=== PATIENT | male | born 1960 | race African-American/Black ===

== ENCOUNTER 2017-03-31 18:56 | Inpatient (IN) | payer OTHER ==
[~2017-03-31] VITALS: Ht 170.2 cm; Wt 80.7 kg
[~2017-03-31 18:56] MED LIST: ALBUTEROL0.63 MG/3 INH; AZITHROMYCIN500 MG PO; COZAAR25 MG PO; LABETALOL HCL100 MG PO; LORATADINE10 MG PO; PREDNISONE20 MG PO; TESSALON PERLE100 MG PO
[2017-03-31] MEDS ORDERED: ACETAMINOPHEN 325 MG TAB ONE (19:19)
[2017-03-31 19:29] LABS: STREPTOCOCCUS GRP A ANTIGEN NEGATIVE (NEGATIVE)
[2017-03-31] MEDS ORDERED: ACETAMINOPHEN 325 MG TAB PO ONE (19:30)
--- NOTE | 2017-03-31 19:38 | Diagnostic Imaging Report ---
EXAMINATION: CHEST 2 VIEWS 03/31/2017 7:07 PM COMPARISON: Chest CT from 09/02/2016 INDICATION: Shortness of breath, cough, congestion DISCUSSION: LINES: None. LUNGS: Diffuse interstitial opacities within upper lobe predominance, compatible with the diagnosis of sarcoidosis.. No focal consolidation. PLEURA: No pleural effusion or pneumothorax. Blunting of the right costophrenic angle is likely related to scarring. HEART AND MEDIASTINUM: Normal heart size. Enlarged pulmonary dee may be related to pulmonary arterial hypertension. BONES AND SOFT TISSUES: No acute osseous lesion. The soft tissues are normal. IMPRESSION: Interstitial lung disease, consistent with the reported history of sarcoidosis. No focal consolidation. Naga Tracy MD Signed by: Dr. Naga Tracy M.D. on 03/31/2017 7:34 PM
[2017-03-31 19:39] LABS: INFLUENZAE A&B ANTIGEN (RAPID) NEGATIVE (NEGATIVE)
[2017-03-31] MEDS ORDERED: CEFTRIAXONE SOD 1 GM VIAL IV STA (19:48)
[2017-03-31] MEDS ORDERED: SODIUM CHLORIDE 0.9% 1000ML 1,000 ML IV STA (19:52)
[2017-03-31] MEDS ORDERED: ALBUTEROL/IPRATROPIUM 3 ML NEB NEB ONE (20:00)
[2017-03-31] MEDS ORDERED: METHYLPREDNISOLONE SOD SUCC 125 MG/2ML VIAL IV ONE (20:00)
[2017-03-31] MEDS ORDERED: KETOROLAC TROMETHAMINE 30 MG/ML VIAL IV ONE (20:00)
[2017-03-31 21:29] LABS: EOSINOPHILS % 0.1 % (0.0-6.0); HEMATOCRIT 40.4 % (38.2-49.6); HEMOGLOBIN 13.7 g/dL (14.0-18.0); LYMPHOCYTES # (AUTO) 0.6 (1.0-3.2); LYMPHOCYTES % 8.2 % (18.0-39.1); MEAN CORPUSCULAR HEMOGLOBIN 29.1 pg (28-32); MEAN CORPUSCULAR HGB CONC 33.9 g/dL (31-35); MONOCYTES # (AUTO) 0.2 (0.2-0.8); MONOCYTES % 2.3 % (4.4-11.3); NEUTROPHILS # (AUTO) 6.8 (2.1-6.9); NEUTROPHILS % 89.1 % (38.7-80.0); PLATELET COUNT 161 x10e3/uL (140-360); RED CELL DISTRIBUTION WIDTH 12.1 % (11.7-14.4)
[2017-03-31 21:48] LABS: ALANINE AMINOTRANSFERASE 49 IU/L (0-55); ALBUMIN 4.3 g/dL (3.5-5.0); ALBUMIN/GLOBULIN RATIO 1.3 (0.8-2.0); ALKALINE PHOSPHATASE 71 IU/L (40-150); ANION GAP 11.6 mmol/L (8-16); BLOOD UREA NITROGEN 9 mg/dL (7-26); BUN/CREATININE RATIO 8 (6-25); CALCIUM 9.7 mg/dL (8.4-10.2); CARBON DIOXIDE 26 mmol/L (22-29); CHLORIDE 104 mmol/L (98-107); CREATININE, SERUM 1.14 mg/dL (0.72-1.25); EST GLOMERULAR FILTRATION RATE > 60 ML/MIN (60-); GLUCOSE 123 mg/dL (74-118); POTASSIUM 4.6 mmol/L (3.5-5.1); SODIUM 137 mmol/L (136-145)
[2017-03-31] MEDS: ALBUTEROL/IPRATROPIUM 3 ML NEB NEB SCH (23:45)
[2017-04-01] VITALS (7 sets, daily range): BP systolic 138–169; BP diastolic 81–109
[2017-04-01] MEDS ORDERED: ALBUTEROL/IPRATROPIUM 3 ML NEB NEB PRN (01:15)
[2017-04-01] MEDS: SODIUM CHLORIDE 0.9% 1000ML 1,000 ML IV SCH ×3 (02:17→19:17)
[2017-04-01] MEDS: LEVOFLOXACIN 750MG/DEXTROSE PREMIX BAG 150ML IV SCH (02:17)
[2017-04-01] MEDS: ACETAMINOPHEN/CODEINE 300MG - 30MG TAB PO PRN ×2 (04:49→13:38)
[2017-04-01] MEDS: GUAIFENESIN 600MG/DEXTROMETHORPHAN 30MG TABSR PO SCH ×3 (06:01→17:10)
[2017-04-01] MEDS: METHYLPREDNISOLONE SOD SUCC 40 MG/ML VIAL IV SCH ×3 (06:01→21:33)
[2017-04-01] MEDS: ALBUTEROL/IPRATROPIUM 3 ML NEB NEB SCH ×4 (07:50→19:10)
[2017-04-01] MEDS: LORATADINE 10 MG TAB PO SCH (08:41)
[2017-04-01] MEDS: PREDNISONE 20 MG TAB PO SCH (08:42)
[2017-04-01] MEDS: LOSARTAN POTASSIUM 25 MG TAB PO SCH (08:42)
[2017-04-01] MEDS ORDERED: BENZONATATE 100 MG CAP PO PRN (12:00)
[2017-04-01] MEDS ORDERED: ACETAMINOPHEN 325 MG TAB PO PRN (12:00)
[2017-04-01] MEDS: LABETALOL HCL 100 MG TAB PO SCH ×2 (13:28→20:45)
--- NOTE | 2017-04-01 15:34 | History and Physical ---
PATIENT'S PRIMARY CARE PROVIDER: A doctor at the [facility]. CHIEF COMPLAINT: Shortness of breath. HISTORY OF PRESENT ILLNESS: Mr. Iverson is a 56-year-old gentleman who presents with acute shortness of breath, wheezing, nonproductive cough and labored respirations. His was admitted to the hospital a couple of days ago for flu and upper respiratory infection. The patient does have a history of sarcoidosis that was diagnosed by bronchoscopy in 1986. REVIEW OF SYSTEMS: He denies fever, chills, or weight loss. He denies sinus congestion or sore throat. He denies chest pain or palpitations. He does have some pleuritic pain with coughing in the right lower chest wall. He does complain of shortness of breath, wheezing and hacking cough. He denies abdominal pain, nausea, vomiting, or melena. He denies dysuria or flank pain. He denies rash or pruritus. He denies joint pain or swelling. He denies bleeding or bruising. He denies headache, vertigo or loss of consciousness. He denies depression, agitation, homicidal or suicidal ideation. PAST MEDICAL HISTORY: Significant for longstanding hypertension and sarcoidosis that was diagnosed by bronchoscopy in 1986 and COPD. He has a history of cholecystectomy a few years ago. CURRENT MEDICATIONS: Include: 1. Tessalon Perles as needed. 2. Labetalol 100 mg q.12 h. 3. Albuterol nebs as needed. 4. Loratadine 10 mg daily. 5. Losartan 25 mg daily. 6. Prednisone 20 mg daily. 7. Zithromax 500 mg daily as an outpatient. ALLERGIES: HE HAS NO KNOWN DRUG ALLERGIES. FAMILY HISTORY: Remarkable only for hypertension. SOCIAL HISTORY: The patient is . Bengali is his primary language. He has never smoked. He does not drink or use illegal drugs. He is generally independently functioning. PHYSICAL EXAMINATION PSYCHIATRIC: He is alert and oriented times 3 with normal mood and affect. CONSTITUTIONAL: He has normal body habitus. He is in no acute distress. VITAL SIGNS: Blood pressure 169/101, pulse 110 and regular, respiratory rate 23, O2 sat 99% on 2 L nasal cannula. Temperature 97.0. HEENT: Head is atraumatic. Eyes are anicteric, with clear conjunctivae. Ears and nares are without erythema or discharge. Oropharynx is clear. NECK: Supple with no mass or thyromegaly. LYMPHATIC SYSTEM: He has no palpable cervical, axillary or inguinal adenopathy. CARDIOVASCULAR: His heart has regular rate and rhythm, tachycardic, with no murmur. He has no carotid bruit. He has no peripheral edema. He has palpable dorsal and pedal pulses. RESPIRATORY: Lungs are clear to auscultation and percussion with markedly diminished breath sounds throughout, some prolonged expiration, and a dry, hacking cough with some end-expiratory wheezing. He has normal respiratory effort on 2 L nasal cannula. GASTROINTESTINAL: Abdomen is soft, without organomegaly, masses or tenderness. He has normal bowel sounds present. CUTANEOUS: His skin is warm and dry to touch with no rash or skin breakdown. MUSCULOSKELETAL: His joints are in normal alignment without erythema or swelling. He has no calf tenderness. NEUROLOGIC: Exam is nonfocal with intact cranial nerves and no motor or sensory deficits. DIAGNOSTIC STUDIES: Chest x-ray shows chronic interstitial lung disease consistent with sarcoidosis. His flu screen was negative. Strep screen was negative. His CBC shows a white count of 7.66 with 89% neutrophils, hemoglobin 13.7, hematocrit 40.4, platelet count 161,000. Chemistry shows normal electrolytes, CO2 26, creatinine 1.14 and BUN 9 for a normal GFR, calcium 9.7, glucose 123. Transaminases, bilirubin and alk phos are normal. IMPRESSION 1. Bronchopneumonia. 2. Acute chronic obstructive pulmonary disease exacerbation. 3. Sarcoidosis flare-up. 4. Hypertension. PLAN 1. The patient is admitted to the floor and started on aggressive neb treatments along with IV Solu-Medrol and IV Levaquin for the bronchopneumonia and COPD exacerbation. The patient is on supplemental oxygen. 2. The patient is, again, receiving IV steroids for his sarcoid flare-up. 3. The patient will continue with losartan and labetalol for blood pressure control. 4. For prophylaxis, the patient will be on Lovenox for DVT prophylaxis and Pepcid for GI prophylaxis. Job#: [id number]
[2017-04-01] MEDS: ENOXAPARIN SOD INJ 40 MG/0.4 ML SYR SC SCH (16:28)
[2017-04-01] MEDS: FAMOTIDINE 20 MG TAB PO SCH (16:28)
[2017-04-02] VITALS: BP 152/95
[2017-04-02] MEDS: GUAIFENESIN 600MG/DEXTROMETHORPHAN 30MG TABSR PO SCH ×4 (00:15→18:44)
[2017-04-02] MEDS: LEVOFLOXACIN 750MG/DEXTROSE PREMIX BAG 150ML IV SCH (01:12)
[2017-04-02] MEDS: ACETAMINOPHEN/CODEINE 300MG - 30MG TAB PO PRN ×2 (01:12→13:46)
[2017-04-02] MEDS: ALBUTEROL/IPRATROPIUM 3 ML NEB NEB SCH ×5 (02:55→20:45)
[2017-04-02] MEDS: METHYLPREDNISOLONE SOD SUCC 40 MG/ML VIAL IV SCH ×3 (05:28→21:04)
[2017-04-02 05:43] VITALS: BP 162/95
[2017-04-02 07:12] LABS: HEMOGLOBIN 11.3 g/dL (14.0-18.0); LYMPHOCYTES # (AUTO) 0.8 (1.0-3.2); LYMPHOCYTES % 8.4 % (18.0-39.1); MEAN CORPUSCULAR HEMOGLOBIN 29.4 pg (28-32); MEAN CORPUSCULAR HGB CONC 33.2 g/dL (31-35); MEAN CORPUSCULAR VOLUME 88.3 fL (81-99); MONOCYTES # (AUTO) 0.7 (0.2-0.8); MONOCYTES % 7.4 % (4.4-11.3); NEUTROPHILS # (AUTO) 8.1 (2.1-6.9); NEUTROPHILS % 83.9 % (38.7-80.0); PLATELET COUNT 150 x10e3/uL (140-360); RED BLOOD COUNT 3.85 x10e6/uL (4.3-5.7); RED CELL DISTRIBUTION WIDTH 12.5 % (11.7-14.4)
[2017-04-02] MEDS ORDERED: BISACODYL 5 MG TAB EC PO PRN (08:15)
[2017-04-02 08:21] LABS: ANION GAP 14.4 mmol/L (8-16); BLOOD UREA NITROGEN 14 mg/dL (7-26); BUN/CREATININE RATIO 14 (6-25); CALCIUM 9.1 mg/dL (8.4-10.2); CARBON DIOXIDE 24 mmol/L (22-29); CHLORIDE 106 mmol/L (98-107); CREATININE, SERUM 1.01 mg/dL (0.72-1.25); EST GLOMERULAR FILTRATION RATE > 60 ML/MIN (60-); GLUCOSE 123 mg/dL (74-118); POTASSIUM 4.4 mmol/L (3.5-5.1); SODIUM 140 mmol/L (136-145)
[2017-04-02 08:26] VITALS: BP 148/87
[2017-04-02 08:38] LABS: MAGNESIUM 2.3 MG/DL (1.3-2.1)
[2017-04-02] MEDS: LORATADINE 10 MG TAB PO SCH (08:43)
[2017-04-02] MEDS: FAMOTIDINE 20 MG TAB PO SCH ×2 (08:43→17:23)
[2017-04-02] MEDS: LOSARTAN POTASSIUM 25 MG TAB PO SCH (08:44)
[2017-04-02] MEDS: PREDNISONE 20 MG TAB PO SCH (08:46)
[2017-04-02] MEDS: LABETALOL HCL 100 MG TAB PO SCH ×2 (08:47→21:04)
[2017-04-02] MEDS ORDERED: CITRATE OF MAGNESIA 300ML BOTTLE PO ONE (09:00)
[2017-04-02 09:05] LABS: THYROID STIMULATING HORMONE 0.426 uIU/mL (0.350-4.940)
[2017-04-02] MEDS ORDERED: MINERAL OIL 132 ML BTL PR ONE (09:15)
[2017-04-02 12:13] VITALS: BP 168/97
[2017-04-02] MEDS: DOCUSATE SODIUM 100 MG CAP PO SCH ×2 (13:43→17:23)
[2017-04-02 15:54] VITALS: BP 153/95
[2017-04-02] MEDS: ENOXAPARIN SOD INJ 40 MG/0.4 ML SYR SC SCH (17:23)
[2017-04-02] MEDS ORDERED: HYDRALAZINE HCL 20 MG/ML VIAL IV PRN (18:15)
[2017-04-02 20:00] VITALS: BP 160/96
[2017-04-03] VITALS: BP 169/103
[2017-04-03] MEDS: GUAIFENESIN 600MG/DEXTROMETHORPHAN 30MG TABSR PO SCH ×5 (00:28→23:15)
[2017-04-03] MEDS: LEVOFLOXACIN 750MG/DEXTROSE PREMIX BAG 150ML IV SCH (00:29)
[2017-04-03] MEDS: ALBUTEROL/IPRATROPIUM 3 ML NEB NEB SCH ×6 (00:30→20:00)
[2017-04-03 04:00] VITALS: BP 158/98
[2017-04-03] MEDS: METHYLPREDNISOLONE SOD SUCC 40 MG/ML VIAL IV SCH ×3 (05:40→21:03)
[2017-04-03] MEDS: FAMOTIDINE 20 MG TAB PO SCH ×2 (07:30→16:30)
[2017-04-03 08:00] VITALS: BP_SYST 153; BP_SYST 195; BP_DIAS 106; BP_DIAS 82
[2017-04-03] MEDS: LORATADINE 10 MG TAB PO SCH (09:00)
[2017-04-03] MEDS: DOCUSATE SODIUM 100 MG CAP PO SCH ×2 (09:00→17:00)
[2017-04-03] MEDS: LOSARTAN POTASSIUM 25 MG TAB PO SCH ×2 (09:00→17:00)
[2017-04-03] MEDS: PREDNISONE 20 MG TAB PO SCH (09:00)
[2017-04-03] MEDS: LABETALOL HCL 100 MG TAB PO SCH ×2 (09:00→20:29)
[2017-04-03 12:00] VITALS: BP 142/92
[2017-04-03 16:00] VITALS: BP 130/80
[2017-04-03] MEDS: ENOXAPARIN SOD INJ 40 MG/0.4 ML SYR SC SCH (17:00)
[2017-04-03 20:00] VITALS: BP 140/100
[2017-04-03] MEDS: ACETAMINOPHEN/CODEINE 300MG - 30MG TAB PO PRN (21:00)
[2017-04-03] MEDS ORDERED: HYDROCODONE/APAP 10MG-325MG TAB PO ONE (22:30)
[2017-04-04] VITALS: BP 151/97
[2017-04-04] MEDS: ALBUTEROL/IPRATROPIUM 3 ML NEB NEB SCH ×6 (00:30→20:00)
[2017-04-04] MEDS: LEVOFLOXACIN 750MG/DEXTROSE PREMIX BAG 150ML IV SCH (01:15)
[2017-04-04 04:00] VITALS: BP 153/98
[2017-04-04] MEDS: GUAIFENESIN 600MG/DEXTROMETHORPHAN 30MG TABSR PO SCH ×3 (05:33→18:00)
[2017-04-04] MEDS: FAMOTIDINE 20 MG TAB PO SCH ×2 (07:30→16:30)
[2017-04-04 07:48] VITALS: BP 135/84
[2017-04-04] MEDS: DOCUSATE SODIUM 100 MG CAP PO SCH ×2 (09:00→17:00)
[2017-04-04] MEDS: LOSARTAN POTASSIUM 25 MG TAB PO SCH ×2 (09:00→17:00)
[2017-04-04] MEDS: LORATADINE 10 MG TAB PO SCH (09:00)
[2017-04-04] MEDS: PREDNISONE 20 MG TAB PO SCH (09:00)
[2017-04-04] MEDS: LABETALOL HCL 100 MG TAB PO SCH ×2 (09:00→21:14)
[2017-04-04] MEDS: METHYLPREDNISOLONE SOD SUCC 40 MG/ML VIAL IV SCH (09:00)
[2017-04-04 12:00] VITALS: BP 122/70
[2017-04-04 16:00] VITALS: BP 134/80
[2017-04-04] MEDS: ENOXAPARIN SOD INJ 40 MG/0.4 ML SYR SC SCH (17:00)
[2017-04-04] MEDS ORDERED: ACETYLCYSTEINE 20% INHAL SOLN 30 ML VIAL INH SCH (18:00)
[2017-04-04 20:00] VITALS: BP 127/82
[2017-04-04] MEDS: ACETYLCYSTEINE 200 MG/ML 4ML VIAL INH SCH (20:00)
[2017-04-05] VITALS: BP 136/91
[2017-04-05] MEDS: ALBUTEROL/IPRATROPIUM 3 ML NEB NEB SCH ×7 (00:30→20:06)
[2017-04-05] MEDS: ACETYLCYSTEINE 200 MG/ML 4ML VIAL INH SCH ×4 (00:30→20:06)
[2017-04-05] MEDS: LEVOFLOXACIN 750MG/DEXTROSE PREMIX BAG 150ML IV SCH (01:15)
[2017-04-05 04:00] VITALS: BP 117/82
[2017-04-05] MEDS: GUAIFENESIN 600MG/DEXTROMETHORPHAN 30MG TABSR PO SCH ×4 (05:37→18:38)
[2017-04-05 06:22] LABS: EOSINOPHILS % 0.2 % (0.0-6.0); HEMATOCRIT 38.6 % (38.2-49.6); LYMPHOCYTES # (AUTO) 1.2 (1.0-3.2); LYMPHOCYTES % 19.1 % (18.0-39.1); MEAN CORPUSCULAR HEMOGLOBIN 29.6 pg (28-32); MEAN CORPUSCULAR HGB CONC 33.7 g/dL (31-35); MEAN CORPUSCULAR VOLUME 87.9 fL (81-99); MONOCYTES # (AUTO) 0.6 (0.2-0.8); MONOCYTES % 9.7 % (4.4-11.3); NEUTROPHILS # (AUTO) 4.6 (2.1-6.9); NEUTROPHILS % 70.7 % (38.7-80.0); PLATELET COUNT 160 x10e3/uL (140-360); RED BLOOD COUNT 4.39 x10e6/uL (4.3-5.7); RED CELL DISTRIBUTION WIDTH 12.2 % (11.7-14.4)
[2017-04-05 06:43] LABS: ALANINE AMINOTRANSFERASE 46 IU/L (0-55); ALBUMIN 3.4 g/dL (3.5-5.0); ALBUMIN/GLOBULIN RATIO 1.2 (0.8-2.0); ALKALINE PHOSPHATASE 74 IU/L (40-150); ANION GAP 11.6 mmol/L (8-16); BLOOD UREA NITROGEN 19 mg/dL (7-26); BUN/CREATININE RATIO 17 (6-25); CARBON DIOXIDE 30 mmol/L (22-29); CHLORIDE 102 mmol/L (98-107); CREATININE, SERUM 1.13 mg/dL (0.72-1.25); EST GLOMERULAR FILTRATION RATE > 60 ML/MIN (60-); GLUCOSE 94 mg/dL (74-118); POTASSIUM 3.6 mmol/L (3.5-5.1); SODIUM 140 mmol/L (136-145)
[2017-04-05 07:37] VITALS: BP 110/79
[2017-04-05] MEDS: DOCUSATE SODIUM 100 MG CAP PO SCH ×2 (08:50→18:38)
[2017-04-05] MEDS: PREDNISONE 20 MG TAB PO SCH (08:50)
[2017-04-05] MEDS: ACETAMINOPHEN/CODEINE 300MG - 30MG TAB PO PRN (08:50)
[2017-04-05] MEDS: FAMOTIDINE 20 MG TAB PO SCH ×2 (08:50→18:38)
[2017-04-05] MEDS: LORATADINE 10 MG TAB PO SCH (08:50)
[2017-04-05] MEDS: METHYLPREDNISOLONE SOD SUCC 40 MG/ML VIAL IV SCH (08:50)
[2017-04-05] MEDS: LOSARTAN POTASSIUM 25 MG TAB PO SCH ×2 (08:51→18:38)
[2017-04-05] MEDS: LABETALOL HCL 100 MG TAB PO SCH ×2 (08:51→21:23)
[2017-04-05 11:20] VITALS: BP 130/88
[2017-04-05 15:45] VITALS: BP 115/74
[2017-04-05] MEDS: ENOXAPARIN SOD INJ 40 MG/0.4 ML SYR SC SCH (18:38)
[2017-04-05 21:58] VITALS: BP 130/83
[2017-04-06] MEDS: ACETYLCYSTEINE 200 MG/ML 4ML VIAL INH SCH ×4 (00:45→19:40)
[2017-04-06 00:46] VITALS: BP 127/86
[2017-04-06] MEDS: LEVOFLOXACIN 750MG/DEXTROSE PREMIX BAG 150ML IV SCH (01:21)
[2017-04-06] MEDS: GUAIFENESIN 600MG/DEXTROMETHORPHAN 30MG TABSR PO SCH ×3 (01:21→12:53)
[2017-04-06] MEDS: ALBUTEROL/IPRATROPIUM 3 ML NEB NEB SCH ×6 (03:45→23:05)
[2017-04-06 04:00] VITALS: BP 133/93
[2017-04-06 07:36] LABS: BASOPHILS % 0.2 % (0.0-1.0); EOSINOPHILS % 0.4 % (0.0-6.0); HEMATOCRIT 38.6 % (38.2-49.6); HEMOGLOBIN 12.9 g/dL (14.0-18.0); LYMPHOCYTES # (AUTO) 1.3 (1.0-3.2); LYMPHOCYTES % 23.2 % (18.0-39.1); MEAN CORPUSCULAR HEMOGLOBIN 29.2 pg (28-32); MEAN CORPUSCULAR HGB CONC 33.4 g/dL (31-35); MEAN CORPUSCULAR VOLUME 87.3 fL (81-99); MONOCYTES # (AUTO) 0.7 (0.2-0.8); MONOCYTES % 11.8 % (4.4-11.3); NEUTROPHILS # (AUTO) 3.6 (2.1-6.9); PLATELET COUNT 171 x10e3/uL (140-360); RED BLOOD COUNT 4.42 x10e6/uL (4.3-5.7); RED CELL DISTRIBUTION WIDTH 12.1 % (11.7-14.4)
[2017-04-06 07:38] VITALS: BP 123/91
--- NOTE | 2017-04-06 07:56 | Diagnostic Imaging Report ---
PROCEDURE:CHEST SINGLE (PORTABLE) TECHNIQUE:Portable AP chest INDICATION:Trouble breathing COMPARISON:Patients [facility], CT, CT CHEST W, 09/02/2016, 8:50. Patients [facility], DX, CHEST 2 VIEWS, 03/31/2017, 18:56. FINDINGS: Severe centrilobular emphysema with bilateral perihilar interstitial thickening, bronchiectasis and fibrosis. Normal heart size, with marked enlargement of the pulmonary arteries. No pleural effusions. Intact skeleton. CONCLUSION: 1. Severe emphysema with pulmonary artery enlargement consistent with pulmonary hypertension. 2. No definitive evidence of lobar pneumonia. Atypical or viral pneumonia would be difficult to distinguish given the level of chronic interstitial changes in the perihilar regions. Dictated by: Xander Noonan M.D. on 04/06/2017 at 8:04 Electronically approved by: Xander Noonan M.D. on 04/06/2017 at 8:04
[2017-04-06] MEDS: FAMOTIDINE 20 MG TAB PO SCH ×2 (08:14→17:01)
[2017-04-06] MEDS: PREDNISONE 20 MG TAB PO SCH (09:55)
[2017-04-06] MEDS: METHYLPREDNISOLONE SOD SUCC 40 MG/ML VIAL IV SCH (09:55)
[2017-04-06] MEDS: LOSARTAN POTASSIUM 25 MG TAB PO SCH ×2 (09:55→17:29)
[2017-04-06] MEDS: LORATADINE 10 MG TAB PO SCH (09:55)
[2017-04-06] MEDS: DOCUSATE SODIUM 100 MG CAP PO SCH ×2 (09:55→17:29)
[2017-04-06] MEDS: LABETALOL HCL 100 MG TAB PO SCH ×2 (09:57→21:49)
[2017-04-06 11:26] VITALS: BP_SYST 105; BP_SYST 118; BP_DIAS 59; BP_DIAS 78
[2017-04-06 15:40] VITALS: BP 135/89
[2017-04-06] MEDS: ENOXAPARIN SOD INJ 40 MG/0.4 ML SYR SC SCH (17:29)
[2017-04-06 20:00] VITALS: BP 128/82
--- NOTE | 2017-04-06 22:23 | Consultation ---
DATE OF CONSULTATION: PULMONARY CONSULTATION Patient of Dr. Mccabe. A charming 57-year-old gentleman with history of pulmonary sarcoid diagnosed 31 years ago with bronchoscopy. He was admitted with cough and shortness of breath. No history of fever or chills. He is not smoker, did drink in the past, works as a security software engineer, he has been a truck washer, social worker school. Born in [place], [place]. Had gallbladder surgery, hernia surgery, bronchoscopy. HOME MEDICATIONS: Tessalon, labetalol, albuterol, losartan, loratadine, prednisone 20 mg, and Zithromax. He is followed by Dr. Iverson at the [facility] periodic basis approximately every . FAMILY HISTORY: Positive for MS in several of female cousins, sister, and asthma. EXAM GENERAL: A well-developed black male, in no acute distress, looking his stated age. VITAL SIGNS: Temperature 97.6, pulse 100, respirations 18, blood pressure . HEENT: Head normocephalic, atraumatic. Eyes: Extraocular movements intact. LUNGS: Diminished breath sounds. HEART: Regular rate and rhythm. ABDOMEN: Nontender. EXTREMITIES: Nonedematous. IMPRESSION: Pulmonary sarcoid with fibrosis medially bilaterally. Echocardiogram was performed, but results are still pending. Continue bronchodilators. Aggressive physical therapy. Await echocardiogram results. Steroids. Check sputum studies. Trial of . Thank you for this kind referral. Job#: [id number] CQ
[2017-04-07] VITALS: BP 138/82
[2017-04-07] MEDS: LEVOFLOXACIN 750MG/DEXTROSE PREMIX BAG 150ML IV SCH (01:18)
[2017-04-07] MEDS: ACETYLCYSTEINE 200 MG/ML 4ML VIAL INH SCH ×2 (02:20→08:28)
[2017-04-07] MEDS: ALBUTEROL/IPRATROPIUM 3 ML NEB NEB SCH ×4 (02:30→15:00)
[2017-04-07 04:00] VITALS: BP 120/76
[2017-04-07 07:02] LABS: EOSINOPHILS # (AUTO) 0.1 (0.0-0.4); HEMATOCRIT 37.3 % (38.2-49.6); HEMOGLOBIN 12.5 g/dL (14.0-18.0); LYMPHOCYTES # (AUTO) 1.4 (1.0-3.2); LYMPHOCYTES % 28.4 % (18.0-39.1); MEAN CORPUSCULAR HEMOGLOBIN 29.3 pg (28-32); MEAN CORPUSCULAR HGB CONC 33.5 g/dL (31-35); MEAN CORPUSCULAR VOLUME 87.4 fL (81-99); MONOCYTES # (AUTO) 0.7 (0.2-0.8); MONOCYTES % 13.1 % (4.4-11.3); NEUTROPHILS # (AUTO) 2.8 (2.1-6.9); NEUTROPHILS % 56.9 % (38.7-80.0); PLATELET COUNT 174 x10e3/uL (140-360); RED BLOOD COUNT 4.27 x10e6/uL (4.3-5.7); RED CELL DISTRIBUTION WIDTH 12.2 % (11.7-14.4)
[2017-04-07 07:15] LABS: ANION GAP 12.6 mmol/L (8-16); BLOOD UREA NITROGEN 16 mg/dL (7-26); BUN/CREATININE RATIO 16 (6-25); CALCIUM 9.2 mg/dL (8.4-10.2); CARBON DIOXIDE 30 mmol/L (22-29); CHLORIDE 102 mmol/L (98-107); CREATININE, SERUM 1.03 mg/dL (0.72-1.25); EST GLOMERULAR FILTRATION RATE > 60 ML/MIN (60-); GLUCOSE 93 mg/dL (74-118); MAGNESIUM 2.4 MG/DL (1.3-2.1); POTASSIUM 3.6 mmol/L (3.5-5.1); SODIUM 141 mmol/L (136-145)
[2017-04-07 07:36] VITALS: BP 126/80
[2017-04-07] MEDS: FAMOTIDINE 20 MG TAB PO SCH (08:30)
[2017-04-07] MEDS: METHYLPREDNISOLONE SOD SUCC 40 MG/ML VIAL IV SCH (08:33)
[2017-04-07] MEDS: DOCUSATE SODIUM 100 MG CAP PO SCH (08:33)
[2017-04-07] MEDS: PREDNISONE 20 MG TAB PO SCH (08:33)
[2017-04-07] MEDS: LOSARTAN POTASSIUM 25 MG TAB PO SCH (08:33)
[2017-04-07] MEDS: LORATADINE 10 MG TAB PO SCH (08:33)
[2017-04-07] MEDS: LABETALOL HCL 100 MG TAB PO SCH (08:34)
--- NOTE | 2017-04-07 12:49 | Diagnostic Imaging Report ---
PROCEDURE: CT CHEST WITHOUT CONTRAST CT scan of the chest WITHOUT intravenous contrast, using standard protocol. TECHNIQUE: The chest was scanned utilizing a multidetector helical scanner from the apex to the level of the adrenal glands. No IV contrast was administered as per physician request. Coronal and sagittal multiplanar reformations were obtained. COMPARISON: CT chest 09/02/2016. INDICATIONS: SARCOID, BRONCHOPNEUMONIA FINDINGS: Lines/tubes: None. Lungs and Airways: Emphysematous changes are present in the upper lobes bilaterally. Minimal bilateral pleural scarring. In the central cystic bronchiectasis is present in the lungs bilaterally, series 3 image 52. The bronchiectasis involve all of the central bronchials of the pulmonary lobes bilaterally. Pleura: The pleural spaces are clear. Heart and mediastinum: The thyroid gland is normal. No significant mediastinal, hilar or axillary lymphadenopathy is seen. The heart and pericardium are within normal limits. Coarse calcified lymph nodes are present in the dee, right paratracheal, and subcarinal regions. Soft tissues: Normal. Abdomen: Limited views of the upper abdomen show no abnormality within the visualized liver, spleen, pancreas, or kidneys. The adrenal glands are normal. Bones: The visualized bony thorax is within normal limits. Degenerative changes of the thoracic spine. IMPRESSION: Bilateral central cystic bronchiectasis. Possible etiologies include connective tissue diseases (systemic lupus erythematosus), chronic aspiration, bronchial cartilage deficiency, and post infective residual changes may be seen with the bronchiectasis pattern. Dictated by: Leobardo Pham M.D. on 04/07/2017 at 12:57 Electronically approved by: Leobardo Pham M.D. on 04/07/2017 at 12:57
[2017-04-07 12:53] VITALS: BP 111/77
[2017-04-07] MEDS ORDERED: LEVAQUIN750 MG PO (13:40)
[2017-04-07] MEDS ORDERED: PREDNISONE20 MG PO (13:40)
[2017-04-07] MEDS ORDERED: COZAAR25 MG PO (13:40)
[2017-04-07 16:52] VITALS: BP 120/75
--- NOTE | 2017-04-10 21:49 | Discharge Summary ---
ADMITTING DIAGNOSES 1. Dyspnea. 2. Chronic obstructive pulmonary disease exacerbation. DISCHARGE DIAGNOSES 1. Dyspnea. 2. Chronic obstructive pulmonary disease exacerbation. 3. Bronchopneumonia. 4. Hypermagnesemia. 5. Sarcoidosis. 6. Hypertension. HISTORY: Patient has a history of long-standing hypertension and sarcoidosis that was diagnosed by bronch in 1986, COPD, cholecystectomy. HOSPITAL COURSE: A 56-year-old man presented with shortness of breath, wheezing, nonproductive cough, and labored respiration. His was recently admitted to the hospital for flu and upper respiratory tract infection. Upon admission, the flu screen and group A strep screen were both negative. The blood culture showed usual respiratory callie. Patient was started on Solu-Medrol IV, IV Levaquin, oxygen, and p.o. steroids as well. Patient was continued on home medicines for blood pressure. Patient's respiratory status continued to get better. Prior to the discharge, a chest x-ray was ordered for followup. The chest x-ray showed severe emphysema with pulmonary artery enlargement consistent with pulmonary hypertension. No definitive evidence of lobar pneumonia. An echo was then ordered to followup, showed an EF of 55%-60%, normal left ventricular size and normal left ventricular wall thickness. Pulmonary was consulted, who ordered a CAT scan of the chest, which showed bilateral central cystic bronchiectasis. Pulmonary comfortable to discharge with few more days of antibiotics on top of his normal routine of antibiotics. Patient received 3 more days of Levaquin at time of discharge, increased with losartan to 25 b.i.d. and extra 4 days of prednisone p.o. on top of his 20 mg p.r.n. he takes at home. Patient is to follow up with pulmonary in 1 week. Dictated by Magda Gomez NP HOUSTON FRANCO MD Job#: [id number] CQ
== END 2017-04-07 16:36 | disposition home or self-care (01) | DRG 196 ==
LOC: ER 18:56 → MED/SURG3 04-01 01:28 → OBSVTOIN 04-04 16:13
PROVIDERS: ADMIT Internal Medicine; ATTEND Internal Medicine
DX: D86.0 Sarcoidosis of lung (principal); J18.0 Bronchopneumonia, unspecified organism; J44.0 Chronic obstructive pulmonary disease with (acute) lower respiratory infection; E83.41 Hypermagnesemia; J44.1 Chronic obstructive pulmonary disease with (acute) exacerbation; I10 Essential (primary) hypertension; K59.00 Constipation, unspecified; R04.0 Epistaxis
CPT/HCPCS: 36415; 71010; 71020; 71250; 80048; 80053; 82103; 83036; 83518; 83735; 83880; 84443; 85025; 87070; 87205; 87400; 93306; 94640; 97139; 99284; G0378; J0360; J0696; J1650; J1885; J2920; J2930; J7030

== ENCOUNTER 2017-04-20 07:28 | Inpatient (IN) | payer OTHER ==
[~2017-04-20] VITALS: Ht 170.2 cm; Wt 83.0 kg
[~2017-04-20 07:28] MED LIST changes: +LEVAQUIN750 MG PO
[2017-04-20] MEDS ORDERED: SODIUM CHLORIDE 0.9% 1000ML 1,000 ML IV STA (07:49)
[2017-04-20] MEDS ORDERED: IPRATROPIUM BROMIDE 0.02% 2.5 ML NEB NEB STA (07:51)
[2017-04-20] MEDS ORDERED: ALBUTEROL SULF 0.083% NEB SOLN 3 ML NEB NEB STA (07:51)
[2017-04-20] MEDS ORDERED: LEVOFLOXACIN 750MG/D5W 150ML 150 ML IV SCH (08:00)
[2017-04-20] MEDS ORDERED: ACETAMINOPHEN 325 MG TAB PO ONE (08:00)
[2017-04-20] MEDS ORDERED: VANCOMYCIN 1GM/NS 250 ML 250 ML IV SCH (08:00)
[2017-04-20] MEDS ORDERED: CEFEPIME HCL 2 GM VIAL IV SCH ×2 (08:00→18:00)
[2017-04-20] MEDS ORDERED: LACTATED RINGER'S 1,000 ML IV ONE (08:15)
--- NOTE | 2017-04-20 08:17 | Diagnostic Imaging Report ---
PROCEDURE: CHEST SINGLE (PORTABLE) COMPARISON: 04/06/2017, at CT chest 04/07/2017 INDICATIONS: FEVER, COUGH FINDINGS: Lungs remain well-inflated. Upper lobe predominant emphysematous changes and prominence of the perihilar regions related to fibrosis are unchanged. No focal airspace consolidation or pleural effusion. Stable cardiomediastinal contour with a normal heart size. No acute osseous abnormality. CONCLUSION: No acute cardiopulmonary abnormality. Stable advanced emphysematous and perihilar fibrotic changes relative to 04/07/2017. Dictated by: Eric Yeager M.D. on 04/20/2017 at 8:25 Electronically approved by: Eric Yeager M.D. on 04/20/2017 at 8:25
[2017-04-20 09:14] LABS: BASOPHILS % 0.1 % (0.0-1.0); EOSINOPHILS % 0.1 % (0.0-6.0); HEMOGLOBIN 13.6 g/dL (14.0-18.0); LYMPHOCYTES # (AUTO) 1.7 (1.0-3.2); LYMPHOCYTES % 25.6 % (18.0-39.1); MEAN CORPUSCULAR HEMOGLOBIN 28.9 pg (28-32); MEAN CORPUSCULAR HGB CONC 33.2 g/dL (31-35); MEAN CORPUSCULAR VOLUME 87.2 fL (81-99); MONOCYTES % 14.9 % (4.4-11.3); PLATELET COUNT 182 x10e3/uL (140-360); RED CELL DISTRIBUTION WIDTH 12.4 % (11.7-14.4)
[2017-04-20 09:26] LABS: INR 0.96; PROTHROMBIN TIME 13.3 seconds (11.9-14.5)
[2017-04-20 09:27] LABS: PARTIAL THROMBOPLASTIN TIME 24.5 seconds (23.8-35.5)
[2017-04-20] MEDS ORDERED: OSELTAMIVIR PHOSPHATE 75 MG CAP PO ONE (09:30)
[2017-04-20 09:33] LABS: ALANINE AMINOTRANSFERASE 148 IU/L (0-55); ALBUMIN 3.9 g/dL (3.5-5.0); ALBUMIN/GLOBULIN RATIO 1.2 (0.8-2.0); ALKALINE PHOSPHATASE 72 IU/L (40-150); ANION GAP 12.9 mmol/L (8-16); BLOOD UREA NITROGEN 14 mg/dL (7-26); BUN/CREATININE RATIO 11 (6-25); CALCIUM 9.5 mg/dL (8.4-10.2); CARBON DIOXIDE 27 mmol/L (22-29); CHLORIDE 98 mmol/L (98-107); CREATINE KINASE 865 IU/L (30-200); CREATININE, SERUM 1.25 mg/dL (0.72-1.25); EST GLOMERULAR FILTRATION RATE > 60 ML/MIN (60-); GLUCOSE 97 mg/dL (74-118); POTASSIUM 3.9 mmol/L (3.5-5.1); SODIUM 134 mmol/L (136-145)
[2017-04-20 09:42] LABS: TROPONIN I 0.061 ng/mL (0-0.300)
[2017-04-20] MEDS ORDERED: LEVOFLOXACIN 750MG/DEXTROSE PREMIX BAG 150ML IV SCH (10:00)
[2017-04-20] MEDS: IPRATROPIUM BROMIDE 0.02% 2.5 ML NEB NEB SCH ×3 (10:30→20:35)
[2017-04-20] MEDS: ALBUTEROL SULF 0.083% NEB SOLN 3 ML NEB NEB SCH ×2 (11:00→15:20)
[2017-04-20 11:41] LABS: BILIRUBIN,URINE NEGATIVE (NEGATIVE); KETONES,URINE NEGATIVE (NEGATIVE); LEUKOCYTE ESTERASE ,URINE NEGATIVE (NEGATIVE); NITRITE,URINE NEGATIVE (NEGATIVE); PROTEIN,URINE DIPSTICK NEGATIVE (NEGATIVE); URINE UROBILINOGEN 0.2 mg/dL (0.2 - 1)
[2017-04-20 11:47] LABS: CLARITY,URINE SL CLOUDY (CLEAR); COLOR,URINE YELLOW (YELLOW)
[2017-04-20] MEDS: D5.45%NS/KCL 20MEQ 1,000 ML IV SCH ×2 (12:00→18:14)
[2017-04-20] MEDS: LEVOFLOXACIN 750MG/D5W 150ML 150 ML IV SCH (12:00)
[2017-04-20 12:15] LABS: EPITHELIAL CELLS,URINE RARE /LPF; RBC,URINE 0-5 /HPF (0-5)
[2017-04-20] MEDS ORDERED: IBUPROFEN 400 MG TAB PO ONE (13:00)
[2017-04-20] MEDS ORDERED: PREDNISONE10 MG PO (14:24)
[2017-04-20 17:06] VITALS: BP 102/66
[2017-04-20 17:06] LABS: CREATINE KINASE MB 11.1 ng/mL (0.00-5.00); TROPONIN I 0.083 ng/mL (0-0.300)
[2017-04-20] MEDS ORDERED: WATER STERILE 10 ML VIAL INJ PRN ×3 (17:15→18:00)
[2017-04-20 17:33] VITALS: BP 102/66
[2017-04-20 17:38] VITALS: BP 102/66
[2017-04-20] MEDS: CEFEPIME HCL 1 GM VIAL IV SCH (18:00)
[2017-04-20 20:34] VITALS: BP 132/67
[2017-04-20] MEDS: ALBUTEROL SULF 0.083% NEB SOLN 3 ML NEB INH SCH (20:35)
[2017-04-20] MEDS: CEPACOL SORE THROAT LOZENGES PO PRN (21:48)
[2017-04-20] MEDS: BENZONATATE 100 MG CAP PO PRN (21:49)
[2017-04-20 23:06] LABS: CREATINE KINASE MB 13.7 ng/mL (0.00-5.00); TROPONIN I 0.085 ng/mL (0-0.300)
[2017-04-20 23:18] VITALS: BP 132/67
--- NOTE | 2017-04-21 00:39 | History and Physical ---
HISTORY OF PRESENT ILLNESS: A charming but unfortunate 57-year-old gentleman with a history of sarcoidosis diagnosed approximately 31 years ago. History of bronchoscopy at that time, chronically on steroids. Temperature was 104 just prior to going to work. He felt ill there. He urinated frequently. He had a cough which has been productive. He had a history of bronchoscopy in the past, history of hernia repair and gallbladder surgery. 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 FAMILY HISTORY: Positive for MS in cousins. MEDICATIONS: Prednisone 20, labetalol, nebulized Albuterol and losartan. In addition to fever, he has had a history of sarcoid, urinary frequency, anxiety, some confusion with present illness. He did not have flu vaccine. PHYSICAL EXAMINATION GENERAL: A well-developed black male in no acute distress, looking his stated age. HEENT: Head is normocephalic, atraumatic. Eyes: Extraocular movements intact. LUNGS: Bilateral rales. HEART: Regular rhythm. ABDOMEN: Nontender. EXTREMITIES: Not edematous. IMPRESSION 1. Probable viral illness. 2. Underlying sarcoid. 3. Hypertension. PLAN: Continue cultures. Antibiotics pending results of cultures. The patient is chronically on corticosteroids and will continue them as well as his losartan. Thank you for this kind referral. Job#: [id number]
[2017-04-21 01:13] VITALS: BP 130/77
[2017-04-21] MEDS: CEFEPIME HCL 1 GM VIAL IV SCH ×3 (01:21→17:37)
[2017-04-21] MEDS: IPRATROPIUM BROMIDE 0.02% 2.5 ML NEB NEB SCH ×4 (03:10→19:48)
[2017-04-21] MEDS: ACETAMINOPHEN 325 MG TAB PO PRN ×2 (05:08→11:00)
[2017-04-21 06:08] VITALS: BP 153/98
[2017-04-21 07:09] LABS: BASOPHILS % 0.1 % (0.0-1.0); EOSINOPHILS % 0.1 % (0.0-6.0); HEMATOCRIT 36.9 % (38.2-49.6); HEMOGLOBIN 12.1 g/dL (14.0-18.0); LYMPHOCYTES # (AUTO) 0.7 (1.0-3.2); LYMPHOCYTES % 10.2 % (18.0-39.1); MEAN CORPUSCULAR HEMOGLOBIN 29.1 pg (28-32); MEAN CORPUSCULAR HGB CONC 32.8 g/dL (31-35); MEAN CORPUSCULAR VOLUME 88.7 fL (81-99); MONOCYTES # (AUTO) 0.9 (0.2-0.8); MONOCYTES % 13.3 % (4.4-11.3); NEUTROPHILS # (AUTO) 5.2 (2.1-6.9); NEUTROPHILS % 76.2 % (38.7-80.0); PLATELET COUNT 144 x10e3/uL (140-360); RED BLOOD COUNT 4.16 x10e6/uL (4.3-5.7); RED CELL DISTRIBUTION WIDTH 12.6 % (11.7-14.4)
[2017-04-21] MEDS: ALBUTEROL SULF 0.083% NEB SOLN 3 ML NEB INH SCH ×3 (07:24→19:40)
[2017-04-21] MEDS: D5.45%NS/KCL 20MEQ 1,000 ML IV SCH ×2 (07:34→22:10)
[2017-04-21 07:37] LABS: BLOOD UREA NITROGEN 10 mg/dL (7-26); BUN/CREATININE RATIO 10 (6-25); CALCIUM 8.6 mg/dL (8.4-10.2); CARBON DIOXIDE 27 mmol/L (22-29); CHLORIDE 102 mmol/L (98-107); CREATININE, SERUM 0.98 mg/dL (0.72-1.25); EST GLOMERULAR FILTRATION RATE > 60 ML/MIN (60-); GLUCOSE 119 mg/dL (74-118); SODIUM 135 mmol/L (136-145)
[2017-04-21 07:54] VITALS: BP 131/88
[2017-04-21] MEDS: LOSARTAN POTASSIUM 25 MG TAB PO SCH ×2 (09:00→17:00)
[2017-04-21] MEDS: OSELTAMIVIR PHOSPHATE 75 MG CAP PO SCH ×2 (09:00→17:00)
[2017-04-21] MEDS: PREDNISONE 20 MG TAB PO SCH (09:00)
--- NOTE | 2017-04-21 09:27 | Diagnostic Imaging Report ---
PROCEDURE: X-RAY CHEST, TWO VIEWS COMPARISON: Patients [facility], CT, CT CHEST WO, 04/07/2017, 6:09. Patients [facility], DX, CHEST SINGLE (PORTABLE), 04/20/2017, 8:05. INDICATIONS: fever FINDINGS: LUNGS: Chronic appearing interstitial disease with emphysematous changes. No focal consolidation. PLEURA: No effusions or pneumothorax. HEART \T\ MEDIASTINUM: The heart is within normal size-limits. BONES \T\ SOFT TISSUES: No acute findings. CONCLUSION: Chronic appearing lung disease without focal consolidation. Alejandro Ahuaj D.O. Dictated by: Alejandro Ahuja D.O. on 04/21/2017 at 9:35 Electronically approved by: Alejandro Ahuja D.O. on 04/21/2017 at 9:35
[2017-04-21] MEDS: LEVOFLOXACIN 750MG/D5W 150ML 150 ML IV SCH (10:00)
[2017-04-21] MEDS: TRIMETHOPRIM/SULFAMETHOXAZOLE 160-800 MG TAB PO SCH ×2 (16:00→21:51)
--- NOTE | 2017-04-21 16:20 | Consultation ---
DATE OF CONSULTATION: INFECTIOUS DISEASE CONSULTATION REASON FOR CONSULTATION: Fever, chills, pneumonia not responding to antibiotic. HISTORY OF PRESENT ILLNESS: This is a very pleasant 57-year-old gentleman who has history of sarcoidosis diagnosed about 31 years ago. The patient has been on steroids, prednisone 20 mg daily for more than a year. The is telling he started to get sick a couple of weeks ago. They were both sick and they were both in the hospital where she was diagnosed with the flu and they were here and they received antibiotic. She got better, and he was discharged home but he really never got better. He continued to have fever. He continued to have chills, not feeling well. He finally came back and he is being admitted. The patient is being admitted. Infectious Disease was consulted. I did review his record, reviewed his medication. PAST MEDICAL HISTORY: Sarcoidosis. Hypertension. PAST SURGICAL HISTORY: He denies. ALLERGIES: NKA. SOCIAL HISTORY: There is no smoking, drug abuse, alcohol use. FAMILY HISTORY: Hypertension. REVIEW OF SYSTEMS: GENERAL: Just not feeling well. HEENT: There is no headache or visual changes, hearing changes. GI: There is no nausea, no vomiting, no diarrhea. CARDIAC: There is no arrhythmia. NEURO: No seizure activity. SKIN: There is no rash. LABORATORY DATA: White count is 6.7, hemoglobin 13. Sodium 135, potassium 4.0, creatinine 0.8. PHYSICAL EXAMINATION: GENERAL: He is currently alert, oriented, does not seem to be in acute distress. VITAL SIGNS: Vitals stable, currently afebrile, but earlier he had 101.6. Heart rate 114. Blood pressure 153/98. HEENT: He is normocephalic, does not appear icteric. NECK: Supple. CHEST: Clear. HEART: S1/S2. No S3, no S4. No murmur. ABDOMEN: Soft. IMPRESSION: Fever, pneumonia. I am concerned about this patient. He has been on steroid 20 mg daily. He is susceptible for a nosocomial infection. Agree with CAT scan. May need a bronchoscopy. Will start him on Bactrim. If there is no improvement by Monday, then will bronc him. Discussed with Dr. Comer. Will also obtain CT. If there is abnormality, then need further investigation. In the meantime, will put him on Bactrim. Continue with cefepime and levofloxacin and vancomycin. I think we can discontinue Tamiflu as even if he had flu it is too late to be treated. Will follow. Job#: [id number]
--- NOTE | 2017-04-21 17:16 | Diagnostic Imaging Report ---
PROCEDURE:CT CHEST WITHOUT CONTRAST COMPARISON:CT chest 04/07/17 INDICATIONS:COUGH, SOB FOR 2 WEEKS TECHNIQUE: Axial CT images of the chest were obtained without intravenous contrast. Coronal and sagittal reformations were made available for review. RADIATION DOSE: Total DLP: 480.6 mGy*cm Estimated effective dose: (DLP x 0.014 x size factor) mSv FINDINGS: Lungs: Diffusely hyperinflated. Paraseptal emphysema is stable in distribution. Perihilar fibrotic changes are stable in severity. Spiculated nodule or scar in the right lung apex is stable (image 24). Scarring in the anterior left apex is stable (image 27). Varicose bronchiectasis in the areas of fibrosis are unchanged. There are no filling defects in the main airways. No consolidation. No new soft tissue mass. Pleura: No pleural effusion or pneumothorax. Heart \T\ Mediastinum: The heart is normal in size. The main pulmonary artery measures 3.1 cm in diameter. The ascending aorta measures 3.1 cm in diameter. No pericardial effusion. The distal esophagus is mildly prominent as across the diaphragm. This could be due to a hiatal hernia. Lymph nodes: No enlarged axillary, supraclavicular lymph nodes. Calcified mediastinal and hilar lymph nodes are stable. No soft tissue adenopathy. Thyroid/base of neck: Unremarkable. Upper abdomen:The gallbladder is absent. There is mild fatty atrophy of the pancreas. No evidence of soft tissue mass. Musculoskeletal:Mild degenerative changes of the spine consistent with age. No evidence of lytic or blastic lesion. CONCLUSION: No progression of pulmonary fibrosis and emphysema. No new findings to explain recent shortness of breath. Enlarged pulmonary artery suggesting pulmonary artery hypertension. Thickening of the distal esophagus is suggestive of hiatal hernia. This could be confirmed with esophagram. Dictated by: Varinder Iverson M.D. on 04/21/2017 at 17:24 Electronically approved by: Varinder Iverson M.D. on 04/21/2017 at 17:24
[2017-04-21] MEDS: BUDESONIDE 0.5MG/2 ML NEB INH SCH (19:40)
[2017-04-21 20:00] VITALS: BP 119/77
[2017-04-21] MEDS: CEPACOL SORE THROAT LOZENGES PO PRN (22:10)
[2017-04-22] VITALS: BP 116/88
[2017-04-22] MEDS: IPRATROPIUM BROMIDE 0.02% 2.5 ML NEB NEB SCH ×4 (02:30→21:05)
[2017-04-22] MEDS: CEFEPIME HCL 1 GM VIAL IV SCH ×3 (03:50→18:00)
[2017-04-22] MEDS: TRIMETHOPRIM/SULFAMETHOXAZOLE 160-800 MG TAB PO SCH ×3 (05:57→20:34)
[2017-04-22] MEDS: ACETAMINOPHEN 325 MG TAB PO PRN ×2 (06:08→20:34)
[2017-04-22] MEDS: ALBUTEROL SULF 0.083% NEB SOLN 3 ML NEB INH SCH ×3 (07:00→21:05)
[2017-04-22] MEDS: BUDESONIDE 0.5MG/2 ML NEB INH SCH ×3 (07:00→21:05)
[2017-04-22 07:52] VITALS: BP 110/75
[2017-04-22] MEDS: LOSARTAN POTASSIUM 25 MG TAB PO SCH ×2 (09:00→17:00)
[2017-04-22] MEDS: PREDNISONE 20 MG TAB PO SCH (09:00)
[2017-04-22] MEDS: OSELTAMIVIR PHOSPHATE 75 MG CAP PO SCH ×2 (09:00→17:00)
[2017-04-22] MEDS: LEVOFLOXACIN 750MG/D5W 150ML 150 ML IV SCH (10:00)
[2017-04-22] MEDS: D5.45%NS/KCL 20MEQ 1,000 ML IV SCH (10:14)
[2017-04-22 13:08] VITALS: BP 138/77
[2017-04-22 17:35] VITALS: BP 140/82
[2017-04-22 20:00] VITALS: BP 127/77
[2017-04-22] MEDS: CEPACOL SORE THROAT LOZENGES PO PRN (20:34)
[2017-04-22] MEDS: BENZONATATE 100 MG CAP PO PRN (20:34)
[2017-04-23] VITALS: BP 112/64
[2017-04-23] MEDS: D5.45%NS/KCL 20MEQ 1,000 ML IV SCH ×2 (01:53→11:56)
[2017-04-23] MEDS: CEFEPIME HCL 1 GM VIAL IV SCH ×2 (01:54→09:36)
[2017-04-23] MEDS: IPRATROPIUM BROMIDE 0.02% 2.5 ML NEB NEB SCH ×4 (03:15→19:58)
[2017-04-23] MEDS: BENZONATATE 100 MG CAP PO PRN ×2 (03:30→21:39)
[2017-04-23] MEDS: TRIMETHOPRIM/SULFAMETHOXAZOLE 160-800 MG TAB PO SCH ×4 (03:30→21:39)
[2017-04-23 04:00] VITALS: BP 129/76
[2017-04-23] MEDS: CEPACOL SORE THROAT LOZENGES PO PRN ×2 (04:26→21:39)
[2017-04-23] MEDS: ACETAMINOPHEN 325 MG TAB PO PRN ×2 (05:54→21:39)
[2017-04-23] MEDS: BUDESONIDE 0.5MG/2 ML NEB INH SCH ×2 (07:00→19:58)
[2017-04-23] MEDS: ALBUTEROL SULF 0.083% NEB SOLN 3 ML NEB INH SCH ×3 (07:39→23:35)
[2017-04-23 09:00] VITALS: BP 135/69
[2017-04-23] MEDS: LOSARTAN POTASSIUM 25 MG TAB PO SCH ×2 (09:36→16:49)
[2017-04-23] MEDS: LEVOFLOXACIN 750MG/D5W 150ML 150 ML IV SCH (09:36)
[2017-04-23] MEDS: PREDNISONE 20 MG TAB PO SCH (09:36)
[2017-04-23] MEDS: OSELTAMIVIR PHOSPHATE 75 MG CAP PO SCH ×2 (09:36→16:49)
[2017-04-23 10:51] VITALS: BP 135/69
[2017-04-23] MEDS: ONDANSETRON HCL INJ 2 MG/ML VIAL IV PRN (14:46)
[2017-04-23] MEDS: DOCUSATE SODIUM LIQD 100 MG/10 ML UDC NG SCH (14:46)
[2017-04-23 16:39] VITALS: BP 122/74
[2017-04-23 20:00] VITALS: BP 127/85
[2017-04-24] VITALS: BP 130/85
[2017-04-24] MEDS: IPRATROPIUM BROMIDE 0.02% 2.5 ML NEB NEB SCH ×4 (01:25→14:25)
[2017-04-24 04:00] VITALS: BP 146/98
[2017-04-24] MEDS: BENZONATATE 100 MG CAP PO PRN (05:31)
[2017-04-24] MEDS: TRIMETHOPRIM/SULFAMETHOXAZOLE 160-800 MG TAB PO SCH ×2 (05:31→14:40)
[2017-04-24] MEDS: ACETAMINOPHEN 325 MG TAB PO PRN ×2 (05:31→10:51)
[2017-04-24] MEDS: ALBUTEROL SULF 0.083% NEB SOLN 3 ML NEB INH SCH ×2 (07:00→14:00)
[2017-04-24] MEDS: BUDESONIDE 0.5MG/2 ML NEB INH SCH ×2 (07:00→19:45)
[2017-04-24 07:10] LABS: BASOPHILS % 0.3 % (0.0-1.0); EOSINOPHILS % 0.3 % (0.0-6.0); HEMATOCRIT 38.8 % (38.2-49.6); LYMPHOCYTES # (AUTO) 1.7 (1.0-3.2); LYMPHOCYTES % 54.5 % (18.0-39.1); MEAN CORPUSCULAR HGB CONC 33.5 g/dL (31-35); MEAN CORPUSCULAR VOLUME 86.4 fL (81-99); MONOCYTES # (AUTO) 0.5 (0.2-0.8); MONOCYTES % 15.8 % (4.4-11.3); NEUTROPHILS # (AUTO) 0.9 (2.1-6.9); NEUTROPHILS % 28.8 % (38.7-80.0); PLATELET COUNT 157 x10e3/uL (140-360); RED BLOOD COUNT 4.49 x10e6/uL (4.3-5.7); RED CELL DISTRIBUTION WIDTH 12.3 % (11.7-14.4)
[2017-04-24 07:33] LABS: ANION GAP 15.5 mmol/L (8-16); BLOOD UREA NITROGEN 9 mg/dL (7-26); BUN/CREATININE RATIO 6 (6-25); CALCIUM 9.6 mg/dL (8.4-10.2); CARBON DIOXIDE 26 mmol/L (22-29); CHLORIDE 97 mmol/L (98-107); EST GLOMERULAR FILTRATION RATE > 60 ML/MIN (60-); GLUCOSE 95 mg/dL (74-118); POTASSIUM 4.5 mmol/L (3.5-5.1); SODIUM 134 mmol/L (136-145)
[2017-04-24 08:00] VITALS: BP 140/83
[2017-04-24 08:15] LABS: LYMPHOCYTES % (MANUAL) 44 % (19-48); METAMYELOCYTES % (MANUAL) 1 % (0-0); MONOCYTES % (MANUAL) 5 % (3.4-9.0); NEUTROPHILS % (MANUAL) 42 % (40-74); PLATELET MORPHOLOGY COMMENT NORMAL; RBC MORPHOLOGY COMMENT NORMAL
[2017-04-24 08:16] LABS: PLATELET ESTIMATE ADEQUATE
[2017-04-24] MEDS: LEVOFLOXACIN 750MG/D5W 150ML 150 ML IV SCH (09:36)
[2017-04-24] MEDS: DOCUSATE SODIUM LIQD 100 MG/10 ML UDC NG SCH ×2 (09:36→17:09)
[2017-04-24] MEDS: PREDNISONE 10 MG TAB PO SCH (09:36)
[2017-04-24] MEDS: OSELTAMIVIR PHOSPHATE 75 MG CAP PO SCH ×2 (09:36→17:09)
[2017-04-24] MEDS: LOSARTAN POTASSIUM 25 MG TAB PO SCH ×2 (09:36→17:09)
[2017-04-24] MEDS: ONDANSETRON HCL INJ 2 MG/ML VIAL IV PRN (10:35)
[2017-04-24 11:46] VITALS: BP 134/87
[2017-04-24] MEDS ORDERED: LACTULOSE SYRUP 20 GM/30 ML UDC PO PRN (15:00)
[2017-04-24] MEDS ORDERED: CHLORASEPTIC SPRAY 177 ML BTL MM PRN (15:00)
[2017-04-24 15:58] VITALS: BP 138/83
[2017-04-24] MEDS ORDERED: NYSTATIN SUSPENSION 5 ML UDC PO PRN (18:00)
[2017-04-24] MEDS ORDERED: MAALOX/LIDOCAINE/BENADRYL 120 ML BTL PO PRN (18:00)
[2017-04-24 20:00] VITALS: BP 144/95
[2017-04-24] MEDS: ATOVAQUONE 750 MG/5 ML SUSP PO SCH (21:00)
[2017-04-24] MEDS: NYSTATIN SUSPENSION 5 ML UDC PO SCH (21:56)
[2017-04-24] MEDS: SODIUM CHLORIDE 0.9% 1000ML 1,000 ML IV SCH (22:01)
[2017-04-25] VITALS (7 sets, daily range): BP systolic 101–142; BP diastolic 80–95
[2017-04-25] MEDS: IPRATROPIUM BROMIDE 0.02% 2.5 ML NEB NEB SCH ×4 (00:17→19:24)
[2017-04-25] MEDS: ALBUTEROL SULF 0.083% NEB SOLN 3 ML NEB INH SCH ×4 (00:17→23:10)
[2017-04-25] MEDS: MAALOX/LIDOCAINE/BENADRYL 120 ML BTL PO PRN ×2 (04:22→12:13)
[2017-04-25] MEDS: NYSTATIN SUSPENSION 5 ML UDC PO SCH ×3 (06:17→21:58)
[2017-04-25] MEDS: SODIUM CHLORIDE 0.9% 1000ML 1,000 ML IV SCH ×2 (06:17→15:03)
[2017-04-25] MEDS: BUDESONIDE 0.5MG/2 ML NEB INH SCH ×2 (07:40→19:24)
[2017-04-25] MEDS: ATOVAQUONE 750 MG/5 ML SUSP PO SCH ×2 (09:00→21:58)
[2017-04-25] MEDS: OSELTAMIVIR PHOSPHATE 75 MG CAP PO SCH ×2 (09:00→17:09)
[2017-04-25] MEDS: LOSARTAN POTASSIUM 25 MG TAB PO SCH ×2 (09:00→17:09)
[2017-04-25] MEDS: PREDNISONE 10 MG TAB PO SCH (09:00)
[2017-04-25] MEDS: DOCUSATE SODIUM LIQD 100 MG/10 ML UDC NG SCH ×2 (09:00→17:09)
[2017-04-25] MEDS: LEVOFLOXACIN 750MG/D5W 150ML 150 ML IV SCH (09:00)
[2017-04-25] MEDS: ONDANSETRON HCL INJ 2 MG/ML VIAL IV PRN (12:25)
[2017-04-26] MEDS: SODIUM CHLORIDE 0.9% 1000ML 1,000 ML IV SCH ×2 (01:02→09:12)
[2017-04-26] MEDS: IPRATROPIUM BROMIDE 0.02% 2.5 ML NEB NEB SCH ×3 (01:30→13:00)
[2017-04-26 01:44] VITALS: BP 124/84
[2017-04-26] MEDS: NYSTATIN SUSPENSION 5 ML UDC PO SCH ×2 (06:39→13:50)
[2017-04-26] MEDS: ALBUTEROL SULF 0.083% NEB SOLN 3 ML NEB INH SCH ×2 (07:00→13:43)
[2017-04-26] MEDS: BUDESONIDE 0.5MG/2 ML NEB INH SCH (07:05)
[2017-04-26 07:18] VITALS: BP 138/84
[2017-04-26 07:18] LABS: ANION GAP 12.4 mmol/L (8-16); BLOOD UREA NITROGEN 8 mg/dL (7-26); BUN/CREATININE RATIO 7 (6-25); CALCIUM 8.9 mg/dL (8.4-10.2); CARBON DIOXIDE 25 mmol/L (22-29); CHLORIDE 103 mmol/L (98-107); CREATININE, SERUM 1.16 mg/dL (0.72-1.25); EST GLOMERULAR FILTRATION RATE > 60 ML/MIN (60-); GLUCOSE 83 mg/dL (74-118); POTASSIUM 4.4 mmol/L (3.5-5.1); SODIUM 136 mmol/L (136-145)
[2017-04-26 07:55] LABS: BASOPHILS % 0.3 % (0.0-1.0); EOSINOPHILS % 1.2 % (0.0-6.0); HEMATOCRIT 35.1 % (38.2-49.6); HEMOGLOBIN 11.7 g/dL (14.0-18.0); LYMPHOCYTES # (AUTO) 1.6 (1.0-3.2); LYMPHOCYTES % 49.1 % (18.0-39.1); MEAN CORPUSCULAR HEMOGLOBIN 29.3 pg (28-32); MEAN CORPUSCULAR HGB CONC 33.3 g/dL (31-35); MEAN CORPUSCULAR VOLUME 87.8 fL (81-99); MONOCYTES # (AUTO) 0.4 (0.2-0.8); MONOCYTES % 13.3 % (4.4-11.3); NEUTROPHILS # (AUTO) 1.2 (2.1-6.9); NEUTROPHILS % 36.1 % (38.7-80.0); PLATELET COUNT 138 x10e3/uL (140-360)
[2017-04-26 08:00] VITALS: BP 138/87
[2017-04-26 08:18] LABS: LYMPHOCYTES % (MANUAL) 47 % (19-48); MONOCYTES % (MANUAL) 12 % (3.4-9.0); NEUTROPHILS % (MANUAL) 31 % (40-74)
[2017-04-26 08:19] LABS: ANISOCYTOSIS SLIGHT; HYPOCHROMASIA SLIGHT; PLATELET ESTIMATE SLIGHTLY DECREASED; PLATELET MORPHOLOGY COMMENT NORMAL; POIKILOCYTOSIS SLIGHT; RBC MORPHOLOGY COMMENT NORMAL
[2017-04-26] MEDS: LOSARTAN POTASSIUM 25 MG TAB PO SCH ×2 (08:34→16:14)
[2017-04-26] MEDS: ATOVAQUONE 750 MG/5 ML SUSP PO SCH (08:34)
[2017-04-26] MEDS: DOCUSATE SODIUM LIQD 100 MG/10 ML UDC NG SCH ×2 (08:34→16:13)
[2017-04-26] MEDS: PREDNISONE 10 MG TAB PO SCH (08:34)
[2017-04-26] MEDS: OSELTAMIVIR PHOSPHATE 75 MG CAP PO SCH ×2 (08:34→16:14)
[2017-04-26] MEDS: LEVOFLOXACIN 750MG/D5W 150ML 150 ML IV SCH (09:05)
[2017-04-26 12:00] VITALS: BP 134/80
[2017-04-26 13:50] VITALS: BP 138/87
[2017-04-26 16:00] VITALS: BP 146/86
== END 2017-04-26 17:21 | disposition home or self-care (01) | DRG 193 ==
LOC: ER 07:28 → ERHOLD 10:01 → MED/SURG2 16:27
PROVIDERS: ADMIT Internal Medicine; ATTEND Internal Medicine
DX: J18.9 Pneumonia, unspecified organism (principal); N17.0 Acute kidney failure with tubular necrosis; N17.9 Acute kidney failure, unspecified; D86.9 Sarcoidosis, unspecified; Z79.51 Long term (current) use of inhaled steroids; J84.10 Pulmonary fibrosis, unspecified; J02.9 Acute pharyngitis, unspecified; I12.9 Hypertensive chronic kidney disease with stage 1 through stage 4 chronic kidney disease, or unspecified chronic kidney disease; N18.9 Chronic kidney disease, unspecified; R09.02 Hypoxemia
CPT/HCPCS: 36415; 71010; 71020; 71250; 80048; 80053; 81001; 82550; 82553; 83605; 84484; 85025; 85610; 85730; 87040; 87070; 87086; 87205; 87400; 93005; 94060; 94640; 99284; J0692; J2405; J3370; J7030; J7120